=== PATIENT | male | born 1980 | race Caucasian/White ===

== ENCOUNTER → 2018-12-15 | Outpatient (CLI) | payer OTHER ==
--- NOTE | 2018-12-15 10:01 | US ---
EXAMINATION TYPE: US venous doppler duplex LE RT DATE OF EXAM: 12/15/2018 9:54 AM COMPARISON: NONE CLINICAL HISTORY: Right knee pain/S83.241A/M79.604/M25.561. Pt states right knee pain, denies prior D VT and not on blood thinners SIDE PERFORMED: Right TECHNIQUE: The lower extremity deep venous system is examined utilizing real time linear array sonog marizol with graded compression, doppler sonography and color-flow sonography. VESSELS IMAGED: External Iliac Vein (EIV) Common Femoral Vein Deep Femoral Vein Greater Saphenous Vein * Femoral Vein Popliteal Vein Small Saphenous Vein * Proximal Calf Veins (* superficial vessels) Right Leg: Negative for DVT Results called to Janessa at [facility] at time of exam IMPRESSION: 1. No diagnostic evidence of DVT as visualized.
== END | disposition home or self-care (01) ==
LOC: RADUSWWP 09:22
PROVIDERS: ATTEND Orthopaedic Surgery
DX: M79.604 Pain in right leg (principal); M17.0 Bilateral primary osteoarthritis of knee

== ENCOUNTER 2019-01-20 11:50 | Emergency (ER) | payer OTHER ==
[2019-01-20 11:55] VITALS: BP 115/76; PULSE 74; TEMP 98
[2019-01-20 12:33] VITALS: RESP 16
[2019-01-20] MEDS ORDERED: IBUPROFEN 600 MG TAB PO STA (12:49)
--- NOTE | 2019-01-20 13:16 | XR ---
Right hand HISTORY: Trauma and pain 3 views of the right hand There is a transverse mid diaphyseal right third digit metacarpal fracture without displacement. No d islocation. Alignment is maintained. IMPRESSION: Nondisplaced third metacarpal fracture.
--- NOTE | 2019-01-20 13:57 | ED ---
General Adult HPI - General Chief complaint: Extremity Injury, Upper Stated complaint: Hand Injury/Lac Time Seen by Provider: 01/20/19 12:01 Source: patient Mode of arrival: ambulatory Limitations: no limitations - History of Present Illness Initial comments: Patient is a 38-year-old male presenting to emergency Department with injury to right hand. Patient states that a cinderblock fell on his right hand with the edge. Patient states the pain is located along the third metacarpal and does not radiate anywhere. Patient denies any bleeding. Patient states the pain is exacerbated with extension of the third digit. Patient reports he has full range of motion but it is painful. Patient states that he has not taken anything to control her pain. She denies any numbness or tingling. - Related Data Home Medications Medication Instructions Recorded Confirmed Omeprazole 20 mg PO DAILY 01/20/19 01/20/19 Allergies Allergy/AdvReac Type Severity Reaction Status Date / Time codeine Allergy Itching Verified 01/20/19 12:23 Review of Systems ROS Statement: Those systems with pertinent positive or pertinent negative responses have been documented in the HPI. ROS Other: All systems not noted in ROS Statement are negative. Past Medical History Past Medical History: No Reported History History of Any Multi-Drug Resistant Organisms: None Reported Past Surgical History: Orthopedic Surgery Additional Past Surgical History / Comment(s): right knee surgery Past Psychological History: No Psychological Hx Reported Smoking Status: Never smoker Past Alcohol Use History: None Reported Past Drug Use History: None Reported General Exam Limitations: no limitations General appearance: alert, in no apparent distress Head exam: Present: atraumatic, normocephalic, normal inspection Eye exam: Present: normal appearance Neck exam: Present: normal inspection Respiratory exam: Present: normal lung sounds bilaterally Cardiovascular Exam: Present: regular rate, normal rhythm, normal heart sounds Right Shoulder Exam: Present: normal inspection, full ROM Upper Arm exam: Present: normal inspection, full ROM Elbow exam: Present: normal inspection, full ROM Forearm Wrist exam: Present: normal inspection, full ROM Hand Wrist exam: Present: tenderness (Third metacarpal), swelling (Third metacarpal region), abrasion, erythema. Absent: laceration, crepitus Vascular: Present: normal capillary refill, radial pulse, ulnar pulse Neurological exam: Present: alert, oriented X3 Psychiatric exam: Present: normal affect, normal mood Skin exam: Present: warm, normal color Course Vital Signs 01/20/19 01/20/19 11:53 12:32 Temperature 98.0 F Pulse Rate 74 Respiratory 18 16 Rate Blood Pressure 115/76 O2 Sat by Pulse 98 Oximetry Procedures - Orthopedic Splinting/Casting Injury #1 Upper Extremity Immobilizer: volar splint Medical Decision Making - Medical Decision Making Patient is a 38-year-old male with trauma to the right hand. X-ray of the right hand is suggestive of a nondisplaced fracture of the third metacarpal. Volar splint was placed on the right hand. Patient advised to ice the hand, keep elevated and alternate between Tylenol and ibuprofen for pain control. Patient advised to follow-up with orthopedics. Patient advised to return to emergency department is symptoms worsen. Case discussed with physician. Disposition Clinical Impression: Fracture of hand Disposition: HOME SELF-CARE Condition: Stable Instructions (If sedation given, give patient instructions): Hand Fracture (ED) Additional Instructions: Please alternate between Tylenol and ibuprofen for pain control. Please keep arm elevated and use ice packs to minimize inflammation. Please follow-up with orthopedics. Please return to emergency department if symptoms worsen. Is patient prescribed a controlled substance at d/c from ED?: No Referrals: [facility],Clinic [Primary Care Provider] - 1-2 days Joseph Mckeon MD [STAFF PHYSICIAN] - 1-2 days Time of Disposition: 13:30
== END 2019-01-20 14:05 | disposition home or self-care (01) ==
LOC: EC 11:50
DX: S62.302A Unspecified fracture of third metacarpal bone, right hand, initial encounter for closed fracture (principal); Z79.899 Other long term (current) drug therapy; Z88.5 Allergy status to narcotic agent; W20.8XXA Other cause of strike by thrown, projected or falling object, initial encounter
CPT/HCPCS: 29125; 99283

== ENCOUNTER 2020-01-22 15:21 | Observation (INO) | payer OTHER ==
[2020-01-22] MEDS ORDERED: ONDANSETRON 4 MG/2 ML VIAL IVP STA (15:33)
--- NOTE | 2020-01-22 15:40 | ED ---
Abdominal Pain HPI <Edward Calzada - Last Filed: 01/22/20 17:16> - General Source: patient Mode of arrival: ambulatory Limitations: no limitations <Marielena Dean - Last Filed: 01/22/20 17:24> - General Chief Complaint: Abdominal Pain Stated Complaint: abd pain,vomiting Time Seen by Provider: 01/22/20 15:33 - History of Present Illness Initial Comments: 39yo male presenting today for cc of RLQ pain x 14 hours. Patient states that he has had nausea, vomiting and RLQ pain since 1:30 AM. Patient states that he has had chills but no recorded fevers. Patient denies any diarrhea or constipation. Patient denies any bloody or melanotic stools. Patient states he has not had an appetite. Patient called his physician who was concerned he possibly had appendicitis and told to come to the emergency department for further evaluation. Patient states the pain does increase with ambulation. Patient kvng es chest pain or SOB. Denies additional complaints. Described pain as aching, sharp at times without radiation. Upon arrival patient VS WNL. (Marielena Dean) - Related Data Home Medications Medication Instructions Recorded Confirmed Omeprazole 20 mg PO DAILY 01/20/19 01/22/20 Varenicline [Chantix Starter Pack] See Taper PO DAILY 01/22/20 01/22/20 Allergies Allergy/AdvReac Type Severity Reaction Status Date / Time codeine Allergy Itching Verified 01/22/20 16:49 Review of Systems ROS Other: All systems not noted in ROS Statement are negative. <Edward Calzada - Last Filed: 01/22/20 17:16> ROS Other: All systems not noted in ROS Statement are negative. <Marielena Dean - Last Filed: 01/22/20 17:24> ROS Statement: Those systems with pertinent positive or pertinent negative responses have been documented in the HPI. Past Medical History Past Medical History: GERD/Reflux History of Any Multi-Drug Resistant Organisms: None Reported Past Surgical History: Orthopedic Surgery Additional Past Surgical History / Comment(s): right knee surgery Past Psychological History: No Psychological Hx Reported Smoking Status: Current every day smoker Past Alcohol Use History: None Reported Past Drug Use History: None Reported <Marielena Dean - Last Filed: 01/22/20 17:24> General Exam Limitations: no limitations <Marielena Dean - Last Filed: 01/22/20 17:24> - General Exam Comments Initial Comments: General: The patient is awake and alert, in no distress, appears nontoxic. Eye: Pupils are equal, round and reactive to light, extra-ocular movements are intact. No nystagmus. There is normal conjunctiva bilaterally. No signs of icterus. Cardiovascular: There is a regular rate and rhythm. No murmur, rub or gallop is appreciated. Respiratory: Lungs are clear to auscultation, respirations are non-labored, breath sounds are equal. No wheezes, stridor, rales, or rhonchi. Gastrointestinal: Soft, non-distended, RLQ tenderness to palpation of the abdomen, some guarding noted. Remaining abdomen is nontender and is without mass es or organomegaly noted. There is no rebound or guarding present. No CVA tenderness. Bowel sounds are unremarkable. Musculoskeletal: Normal ROM, no tenderness. Strength 5/5. Sensation intact. Radial pulses equal bilaterally 2+. Neurological: A&O x 3. CN II-XII intact grossly, There are no obvious motor or sensory deficits. Coordination appears grossly intact. Speech is normal. Skin: Skin is warm and dry and no rashes or lesions are noted. Psychiatric: Cooperative, appropriate mood & affect, normal judgment. (Marielena Dean) Course Vital Signs 01/22/20 15:23 Temperature 98.1 F Pulse Rate 84 Respiratory 18 Rate Blood Pressure 126/77 O2 Sat by Pulse 97 Oximetry Medical Decision Making - Lab Data Result diagrams: 01/22/20 15:41 01/22/20 15:41 <Edward Calzada - Last Filed: 01/22/20 17:16> - Lab Data Result diagrams: 01/22/20 15:41 01/22/20 15:41 <Marielena Dean - Last Filed: 01/22/20 17:24> - Medical Decision Making Patient was reexamined and reevaluated by myself, Dr. Calzada. Onset of symptoms was just over 14 or 15 hours ago. Symptoms have progressively worsened. Loss of appetite. Patient has moderate tenderness with guarding right lower quadrant. Computed tomography scan shows dilated appendix. White blood cell count slightly elevated. Case discussed in detail Dr. Vila who will call the OR and probably take patient today. It is updated. (Edward Calzada) 39-year-old male presenting today for chief complaint of right lower quadrant pain. CT reveals appendix dilation is significant pain on examination with leukocytosis I do suspect that this is a developing acute appendicitis. Patient placed on Zosyn. Dr. Jason on-call surgeon accepted patient and is agreeable to care plan. (Marielena Dean) - Lab Data Lab Results 01/22/20 01/22/20 01/22/20 Range/Units 15:41 15:41 15:41 WBC 11.1 H (3.8-10.6) k/uL RBC 5.42 (4.30-5.90) m/uL Hgb 16.7 (13.0-17.5) gm/dL Hct 51.2 (39.0-53.0) % MCV 94.6 (80.0-100.0) fL MCH 30.7 (25.0-35.0) pg MCHC 32.5 (31.0-37.0) g/dL RDW 12.7 (11.5-15.5) % Plt Count 168 (150-450) k/uL Neutrophils % 68 % Lymphocytes % 20 % Monocytes % 5 % Eosinophils % 6 % Basophils % 0 % Neutrophils # 7.5 (1.3-7.7) k/uL Lymphocytes # 2.2 (1.0-4.8) k/uL Monocytes # 0.5 (0-1.0) k/uL Eosinophils # 0.7 (0-0.7) k/uL Basophils # 0.0 (0-0.2) k/uL Sodium 137 (137-145) mmol/L Potassium 4.3 (3.5-5.1) mmol/L Chloride 107 (98-107) mmol/L Carbon Dioxide 23 (22-30) mmol/L Anion Gap 7 mmol/L BUN 14 (9-20) mg/dL Creatinine 0.82 (0.66-1.25) mg/dL Est GFR (CKD-EPI)AfAm >90 (>60 ml/min/1.73 sqM) Est GFR (CKD-EPI)NonAf >90 (>60 ml/min/1.73 sqM) Glucose 106 H (74-99) mg/dL Plasma Lactic Acid Efrain 1.2 (0.7-2.0) mmol/L Calcium 9.3 (8.4-10.2) mg/dL Total Bilirubin 1.0 (0.2-1.3) mg/dL AST 28 (17-59) U/L ALT 30 (4-49) U/L Alkaline Phosphatase 91 (38-126) U/L Total Protein 7.1 (6.3-8.2) g/dL Albumin 4.3 (3.5-5.0) g/dL Amylase 62 (30-110) U/L Lipase 51 (23-300) U/L Disposition <Edward Calzada - Last Filed: 01/22/20 17:16> Is patient prescribed a controlled substance at d/c from ED?: No Time of Disposition: 16:47 Decision to Admit Reason: Admit from EC Decision Date: 01/22/20 Decision Time: 16:47 <Marielena Dean - Last Filed: 01/22/20 17:24> Clinical Impression: RLQ abdominal pain, Appendicitis Disposition: ADMITTED IP TO THIS HOSP Condition: Stable
[2020-01-22 15:56] LABS: Basophils % (A) 0 %; Eosinophils # (A) 0.7 k/uL (0-0.7); Eosinophils % (A) 6 %; HCT 51.2 % (39.0-53.0); HGB 16.7 gm/dL (13.0-17.5); Lymphocytes # (A) 2.2 k/uL (1.0-4.8); Lymphocytes % (A) 20 %; MCH 30.7 pg (25.0-35.0); MCHC 32.5 g/dL (31.0-37.0); MCV 94.6 fL (80.0-100.0); Mean Platelet Volume 8.9; Monocytes # (A) 0.5 k/uL (0-1.0); Monocytes % (A) 5 %; Neutrophils # (A) 7.5 k/uL (1.3-7.7); Neutrophils % (A) 68 %; Platelet Count 168 k/uL (150-450); RBC 5.42 m/uL (4.30-5.90); RDW 12.7 % (11.5-15.5); WBC 11.1 k/uL (3.8-10.6)
[2020-01-22 16:04] LABS: ALT 30 U/L (4-49); AST 28 U/L (17-59); African American GFR (CKD) >90 (>60 ml/min/1.73 sqM); Albumin 4.3 g/dL (3.5-5.0); Alkaline Phosphatase 91 U/L (38-126); Amylase 62 U/L (30-110); Anion Gap 7 mmol/L; Blood Urea Nitrogen 14 mg/dL (9-20); Calcium 9.3 mg/dL (8.4-10.2); Carbon Dioxide 23 mmol/L (22-30); Chloride 107 mmol/L (98-107); Glucose 106 mg/dL (74-99); Non-African American GFR(CKD) >90 (>60 ml/min/1.73 sqM); Potassium 4.3 mmol/L (3.5-5.1); Sodium 137 mmol/L (137-145); Total Protein 7.1 g/dL (6.3-8.2)
--- NOTE | 2020-01-22 16:41 | CT ---
EXAMINATION TYPE: CT abdomen pelvis w con DATE OF EXAM: 01/22/2020 COMPARISON: None. HISTORY: RLQ pain CT DLP: 1118.4 mGycm, Automated Exposure Control for Dose Reduction was Utilized. CONTRAST: CT scan of the abdomen and pelvis is performed without oral but with IV Contrast, patient injected wi th 100 mL of Isovue 300. FINDINGS: LUNG BASES: Posterior bibasilar linear scarring and/or atelectasis. LIVER/GB: Liver is diffusely low dense consistent with fatty infiltration. PANCREAS: No significant abnormality is seen. SPLEEN: No significant abnormality is seen. ADRENALS: No significant abnormality is seen. KIDNEYS: Subcentimeter simple appearing thin-walled cysts lower pole level both kidneys. Symmetric co rtical medullary uptake and excretion without hydronephrosis seen bilaterally. BOWEL: Suboptimal evaluation without enteric contrast. No suspicious small or large bowel dilatation is present. Appendix mildly thickened up to 8 mm in the right pelvis coronal image 45 for reference w ithout surrounding fat stranding. Appendix seen in its entirety coronal images 34 through 46 for ref erence. PROSTATE/SEMINAL VESICLES: No gross abnormality seen. LYMPH NODES: No greater than 1cm abdominal or pelvic lymph nodes are appreciated. Just below drainin g left renal vein there are prominent but subcentimeter retroperitoneal lymph nodes axial image 36. OSSEOUS STRUCTURES: Moderate disc space narrowing lumbosacral junction with posterior disc herniation sagittal image 66 for reference. OTHER: No significant additional abnormality is seen. IMPRESSION: Appendix is mildly dilated in portions without surrounding inflammatory changes or fat st randing to suggest acute appendicitis. Due to mild dilatation cannot be entirely excluded. Acute find ing of patient's right lower quadrant pain otherwise not identified.
[2020-01-22] MEDS ORDERED: PIPERACILLIN-TAZOBACTAM 3.375 GM in SODIUM CHLORIDE 0.9% 100 ML IVPB STA (16:44)
[2020-01-22] MEDS ORDERED: MORPHINE SULFATE 4 MG/ML SYRINGE IV PRN (16:45)
[2020-01-22] MEDS ORDERED: NALOXONE 0.4 MG/ML 1 ML VIAL IV PRN ×2 (16:45→19:28)
[2020-01-22] MEDS: SODIUM CHLORIDE 0.9% 1,000 ML IV SCH (17:03)
[2020-01-22] MEDS ORDERED: fentaNYL (PF) 50 MCG/ML 2 ML AMP ONE (18:46)
[2020-01-22] MEDS ORDERED: IV FLUID CONTINUATION 1,000 ML IV ONE (18:46)
[2020-01-22] MEDS ORDERED: GLYCOPYRROLATE 0.2 MG/ML 2 ML VIAL ONE (18:46)
[2020-01-22] MEDS ORDERED: ROCURONIUM BROMIDE 10 MG/ML 5 ML VIAL IV ONE (18:46)
[2020-01-22] MEDS ORDERED: SUCCINYLCHOLINE CHLORIDE 100 MG/5 ML SYR IV ONE (18:46)
[2020-01-22] MEDS ORDERED: LIDOCAINE 1% INJ 10MG/ML (20 ML MDV) ONE (18:46)
[2020-01-22] MEDS ORDERED: NEOSTIGMINE 1 MG/ML 10 ML VIAL ONE (18:46)
[2020-01-22] MEDS ORDERED: MIDAZOLAM 2 MG/2 ML VIAL ONE (18:46)
[2020-01-22] MEDS ORDERED: PROPOFOL 10 MG/ML 20 ML VIAL IV ONE (18:46)
--- NOTE | 2020-01-22 18:52 | P.GSHP ---
History of Present Illness H&P Date: 01/22/20 Chief Complaint: Right lower quadrant pain This a 39-year-old male who presents today with complaints of right lower quadrant pain for prostate 14 hours. Patient had her medical pain which radiated to his right lower quadrant. He describes nausea and vomiting earlier today with the pain. Patient's CAT scan shows a dilated appendix suspicious for acute appendicitis. Past Medical History Past Medical History: GERD/Reflux History of Any Multi-Drug Resistant Organisms: None Reported Past Surgical History: Orthopedic Surgery Additional Past Surgical History / Comment(s): right knee surgery Past Psychological History: No Psychological Hx Reported Smoking Status: Current every day smoker Past Alcohol Use History: None Reported Past Drug Use History: None Reported Medications and Allergies Home Medications Medication Instructions Recorded Confirmed Type Omeprazole 20 mg PO DAILY 01/20/19 01/22/20 History Varenicline [Chantix Starter Pack] See Taper PO DAILY 01/22/20 01/22/20 History Allergies Allergy/AdvReac Type Severity Reaction Status Date / Time codeine Allergy Itching Verified 01/22/20 16:49 Surgical - Exam Vital Signs Temp Pulse Resp BP Pulse Ox 98.1 F 84 18 126/77 97 01/22/20 15:23 01/22/20 15:23 01/22/20 15:23 01/22/20 15:23 01/22/20 15:23 - General well developed, well nourished, no distress - Eyes PERRL - ENT normal pinna - Neck no masses - Respiratory normal expansion - Cardiovascular Rhythm: regular - Abdomen Marked right lower quadrant tenderness Abdomen: soft Results - Labs 01/22/20 15:41 01/22/20 15:41 Abnormal Lab Results - Last 24 Hours (Table) 01/22/20 01/22/20 Range/Units 15:41 15:41 WBC 11.1 H (3.8-10.6) k/uL Glucose 106 H (74-99) mg/dL Diabetes panel 01/22/20 Range/Units 15:41 Sodium 137 (137-145) mmol/L Potassium 4.3 (3.5-5.1) mmol/L Chloride 107 (98-107) mmol/L Carbon Dioxide 23 (22-30) mmol/L BUN 14 (9-20) mg/dL Creatinine 0.82 (0.66-1.25) mg/dL Glucose 106 H (74-99) mg/dL Calcium 9.3 (8.4-10.2) mg/dL AST 28 (17-59) U/L ALT 30 (4-49) U/L Alkaline Phosphatase 91 (38-126) U/L Total Protein 7.1 (6.3-8.2) g/dL Albumin 4.3 (3.5-5.0) g/dL Calcium panel 01/22/20 Range/Units 15:41 Calcium 9.3 (8.4-10.2) mg/dL Albumin 4.3 (3.5-5.0) g/dL Pituitary panel 01/22/20 Range/Units 15:41 Sodium 137 (137-145) mmol/L Potassium 4.3 (3.5-5.1) mmol/L Chloride 107 (98-107) mmol/L Carbon Dioxide 23 (22-30) mmol/L BUN 14 (9-20) mg/dL Creatinine 0.82 (0.66-1.25) mg/dL Glucose 106 H (74-99) mg/dL Calcium 9.3 (8.4-10.2) mg/dL Adrenal panel 01/22/20 Range/Units 15:41 Sodium 137 (137-145) mmol/L Potassium 4.3 (3.5-5.1) mmol/L Chloride 107 (98-107) mmol/L Carbon Dioxide 23 (22-30) mmol/L BUN 14 (9-20) mg/dL Creatinine 0.82 (0.66-1.25) mg/dL Glucose 106 H (74-99) mg/dL Calcium 9.3 (8.4-10.2) mg/dL Total Bilirubin 1.0 (0.2-1.3) mg/dL AST 28 (17-59) U/L ALT 30 (4-49) U/L Alkaline Phosphatase 91 (38-126) U/L Total Protein 7.1 (6.3-8.2) g/dL Albumin 4.3 (3.5-5.0) g/dL Assessment and Plan Assessment: Acute appendicitis. Patient undergo laparoscopic appendectomy
[2020-01-22] MEDS ORDERED: BUPIVACAIN-EPI 0.25%-1:200,000 30 ML VIAL SQ ONE (19:03)
[2020-01-22] MEDS ORDERED: ONDANSETRON 4 MG/2 ML VIAL IVP PRN (19:28)
[2020-01-22] MEDS ORDERED: HYDROmorphone 0.5 MG/0.5 ML SYRINGE IVP PRN (19:28)
[2020-01-22] MEDS ORDERED: LACTATED RINGERS 1,000 ML IV ONE (19:28)
--- NOTE | 2020-01-22 19:28 | P.OP ---
Date of Procedure: 01/22/20 Preoperative Diagnosis: Acute appendicitis Postoperative Diagnosis: Acute appendicitis Procedure(s) Performed: Laparoscopic appendectomy Anesthesia: ANKITA Surgeon: Glen Vila Estimated Blood Loss (ml): 5 Pathology: other (Appendix) Condition: stable Disposition: PACU Description of Procedure: HThe patient's placed on the operating table in the supine position. The patient received general anesthesia. The abdomen was prepped and draped in the usual sterile fashion. The skin was anesthetized 1% local Xylocaine at the trocar sites. Using an 11 blade the skin was incised at the umbilicus. The umbilicus was grasped with a Ilsa clamp and then a Veress needle was placed into the peritoneal cavity. Position of the Veress needle was confirmed with positive drop test. After adequate insufflation a 5 mm trocar was placed into the peritoneal cavity. The abdomen was further insufflated. And then the laparoscope was placed in the peritoneal cavity. Next a 5 mm trocar was placed in the midline suprapubic position. And then a 10 mm trocar was placed in the midline epigastric position. The patient was rotated with the right side up and in Trendelenburg. The appendix was visualized. The appendix appeared to be inflamed. The appendix was grasped and then using the Harmonic scissors the mesoappendix was divided. A PDS Endoloop was then placed around the base of the appendix. And then the appendix was divided using Harmonic scissors. The appendix was placed into an Endo Catch and brought out through the 10 mm trocar site. The abdomen was irrigated. There is no bleeding seen. The trochars withdrawn. The skin was closed interrupted 3-0 Monocryl suture. Dermabond dressing was applied. Patient was sent to recovery room in stable condition.
[2020-01-22] MEDS ORDERED: HYDROmorphone 1 MG/ML 1 ML SYRINGE IVP ONE ×2 (19:30→19:35)
[2020-01-22] MEDS ORDERED: diphenhydrAMINE 50 MG/ML 1 ML VIAL IVP ONE (19:32)
[2020-01-22] MEDS ORDERED: KETOROLAC 30 MG/ML 1 ML VIAL IVP ONE (19:40)
[2020-01-22] MEDS ORDERED: HYDROmorphone 0.5 MG/0.5 ML SYRINGE IVP ONE (19:53)
[2020-01-22] MEDS: KETOROLAC 30 MG/ML 1 ML VIAL IVP SCH (21:11)
[2020-01-23] MEDS: KETOROLAC 30 MG/ML 1 ML VIAL IVP SCH ×2 (01:47→08:04)
[2020-01-23 05:29] LABS: Appearance,Urine Clear (Clear); Bilirubin,Urine Negative (Negative); Blood,Urine Negative (Negative); Color,Urine Yellow; Glucose,Urine (UA) Negative (Negative); Ketones,Urine Negative (Negative); Leukocyte Esterase,Urine Negative (Negative); Nitrite,Urine Negative (Negative); Protein,Urine Negative (Negative); Specific Gravity,Urine 1.031 (1.001-1.035); Urobilinogen,Urine <2.0 mg/dL (<2.0)
[2020-01-23] MEDS: SODIUM CHLORIDE 0.9% 1,000 ML IV SCH (06:08)
[2020-01-23] MEDS ORDERED: HYDROcodone/APAP 5-325MG 1 EACH TAB PO PRN (08:27)
[2020-01-23] MEDS ORDERED: ENOXAPARIN 40 MG/0.4 ML SYRINGE SQ SCH (09:00)
--- NOTE | 2020-01-23 11:16 | P.DS ---
Providers Date of admission: 01/22/20 16:56 Expected date of discharge: 01/23/20 Attending physician: Glen Vila Primary care physician: [facility] Hospital Course: 39-year-old male who presented to emergency room with a chief complaint of abdominal pain. Patient was found to have acute appendicitis. He underwent laparoscopic appendectomy with Dr. Vila. Patient is doing well postoperatively without any immediate complications. Pain is controlled on oral medications. He is tolerating diet without nausea or vomiting. Vital signs are stable. He is stable for discharge home today. Please see EMR for further hospital course details. Discharge diagnosis 1. Abdominal pain 2. Acute appendicitis Nurse practitioner note has been reviewed by physician. Signing provider agrees with the documented findings, assessment, and plan of care. Patient Condition at Discharge: Stable Plan - Discharge Summary Discharge Rx Participant: No New Discharge Prescriptions: No Action Omeprazole 20 mg PO DAILY Varenicline [Chantix Starter Pack] See Taper PO DAILY Discharge Medication List Omeprazole 20 mg PO DAILY 01/20/19 [History] Varenicline [Chantix Starter Pack] See Taper PO DAILY 01/22/20 [History] Follow up Appointment(s)/Referral(s): Callum Sykes DO [Doctor of Osteopathic Medicine] - 1-2 days
[2020-01-23 11:45] VITALS: BP 110/69; PULSE 74; RESP 18; TEMP 97.9
== END 2020-01-23 13:10 | disposition home or self-care (01) ==
LOC: EC 15:21 → 5NMEDONC 16:56
PROVIDERS: ADMIT Surgery; ATTEND Surgery
DX: K35.30 Acute appendicitis with localized peritonitis, without perforation or gangrene (principal); K21.9 Gastro-esophageal reflux disease without esophagitis; F17.200 Nicotine dependence, unspecified, uncomplicated; Z79.899 Other long term (current) drug therapy; Z88.5 Allergy status to narcotic agent
CPT/HCPCS: 44970; 96374; 96375; 99285; 36415; 88304; 80053; 82150; 83605; 83690; 85025; 81003; 87040; 74177; G0378 ×2; J2543; J2250; J2270; J1200; J2710; J2405; J2001; J1650; J3010; J1885 ×2; J1170 ×2; J0330; J2704; Q9967

== ENCOUNTER → 2021-10-28 | Outpatient (CLI) | payer OTHER ==
[2021-10-29 01:49] LABS: Basophils # (A) 0.06 X 10*3/uL (0.00-0.10); Basophils % (A) 0.7 %; HCT 51.9 % (39.6-50.0); HGB 16.8 g/dL (13.0-17.0); Immature Grans, Automated 0.7 %; Lymphocytes # (A) 2.84 X 10*3/uL (0.90-5.00); Lymphocytes % (A) 32.5 %; MCHC 32.4 g/dL (32.0-37.0); MCV 95.8 fL (80.0-97.0); Mean Platelet Volume 11.8 fL (9.5-12.2); Monocytes # (A) 0.58 X 10*3/uL (0.20-1.00); Monocytes % (A) 6.6 %; NRBC Per 100 WBC 0 /100 WBCS (0.0-0.0); Neutrophils # (A) 4.49 X 10*3/uL (1.80-7.70); Neutrophils % (A) 51.5 %; Platelet Count 184 X 10*3/uL (140-440); RBC 5.42 X 10*6/uL (4.40-5.60); WBC 8.73 X 10*3/uL (4.50-10.00)
== END | disposition home or self-care (01) ==
LOC: LABPAT 14:30
PROVIDERS: ATTEND Surgery
DX: Z01.812 Encounter for preprocedural laboratory examination (principal); K43.0 Incisional hernia with obstruction, without gangrene
CPT/HCPCS: 36415; 85025; 86850; 86900; 86901

== ENCOUNTER 2021-11-05 06:03 | Day surgery (SDC) | payer OTHER ==
[2021-11-04 08:48] VITALS: BMI 27.6
[~2021-11-05 06:03] MED LIST: ACETAMINOPHEN TAB 500 MG TAB PO PRN; HEPARIN SODIUM,PORCINE/PF 5,000 UNIT/0.5 ML SYRINGE SQ PRN
[2021-11-05] MEDS ORDERED: ONDANSETRON 4 MG/2 ML VIAL IVP ONE (06:20)
[2021-11-05] MEDS ORDERED: DEXAMETHASONE SOD PHOSPHATE 4 MG/ML 1 ML VIAL IV ONE (06:20)
[2021-11-05] MEDS: LACTATED RINGERS 1,000 ML IV SCH ×2 (07:00→09:40)
[2021-11-05 07:03] LABS: Glucose,Whole Blood 96 mg/dL (75-99)
[2021-11-05 07:15] VITALS: RESP 16
[2021-11-05] MEDS ORDERED: MIDAZOLAM 2 MG/2 ML VIAL IVP ONE (07:28)
[2021-11-05] MEDS ORDERED: fentaNYL (PF) 50 MCG/ML 2 ML AMP IVP ONE ×2 (07:28→07:32)
[2021-11-05] MEDS ORDERED: PROPOFOL 10 MG/ML 20 ML VIAL IV ONE (07:56)
[2021-11-05] MEDS ORDERED: HYDROmorphone (PF) 1 MG/ML ONE (07:56)
[2021-11-05] MEDS ORDERED: fentaNYL (PF) 50 MCG/ML 2 ML AMP ONE (07:56)
[2021-11-05] MEDS ORDERED: LIDOCAINE 1% INJ 10MG/ML (20 ML MDV) ONE (07:56)
[2021-11-05] MEDS ORDERED: ROPIVACAINE 5 MG/ML 30 ML VIAL ONE (07:56)
[2021-11-05] MEDS ORDERED: ROCURONIUM 10 MG/ML (5 ML VIAL) IV ONE (07:56)
[2021-11-05] MEDS ORDERED: SODIUM CHLORIDE 0.9% (PF) 10 ML VIAL ONE (07:56)
[2021-11-05] MEDS ORDERED: NEOSTIGMINE 1 MG/ML 10 ML VIAL ONE (07:56)
[2021-11-05] MEDS ORDERED: MIDAZOLAM 2 MG/2 ML VIAL ONE (07:56)
[2021-11-05] MEDS ORDERED: GLYCOPYRROLATE 0.2 MG/ML 2 ML VIAL ONE (07:56)
[2021-11-05] MEDS ORDERED: SUCCINYLCHOLINE CHLORIDE 100 MG/5 ML SYR IV ONE (07:56)
[2021-11-05] MEDS ORDERED: BUPIVACAIN-EPI 0.25%-1:200,000 30 ML VIAL SQ ONE ×2 (08:00→08:30)
[2021-11-05 09:18] VITALS: TEMP 97
--- NOTE | 2021-11-05 09:19 | P.GSHP ---
History of Present Illness H&P Date: 11/05/21 Chief Complaint: Incisional hernia Is a 41-year-old male who's developed an incisional hernia located at his epigastric port site. Patient had previous laparoscopic appendectomy several years ago. Past Medical History Past Medical History: GERD/Reflux Additional Past Medical History / Comment(s): INCISIONAL HERNIA History of Any Multi-Drug Resistant Organisms: None Reported Past Surgical History: Appendectomy, Orthopedic Surgery Additional Past Surgical History / Comment(s): right knee surgery. RT LEG COMPOUND FX SX AGE 8 Past Anesthesia/Blood Transfusion Reactions: No Reported Reaction Smoking Status: Current every day smoker - Past Family History Mother Family Medical History: No Reported History Medications and Allergies Home Medications Medication Instructions Recorded Confirmed Type Omeprazole 20 mg PO DAILY 01/20/19 11/05/21 History Allergies Allergy/AdvReac Type Severity Reaction Status Date / Time codeine Allergy Itching Verified 11/05/21 06:55 Surgical - Exam Vital Signs Temp Pulse Resp BP Pulse Ox 97.4 F L 76 16 130/72 98 11/05/21 07:14 11/05/21 07:14 11/05/21 07:14 11/05/21 07:14 11/05/21 07:14 - General well developed, well nourished, no distress - Eyes PERRL - ENT normal pinna - Neck no masses - Respiratory normal expansion - Cardiovascular Rhythm: regular - Abdomen Incisional hernia Abdomen: soft, non tender Assessment and Plan Assessment: Incisional hernia. We'll perform laparoscopic robotic system repair.
--- NOTE | 2021-11-05 09:22 | P.OP ---
Date of Procedure: 11/05/21 Preoperative Diagnosis: Incisional hernia Postoperative Diagnosis: Incisional hernia Procedure(s) Performed: laparoscopic robotic repair of incisional hernia Partial omentectomy Transversus abdominis plane block Anesthesia: ANKITA Surgeon: Glen Vila Estimated Blood Loss (ml): 5 Pathology: other (Omentum) Condition: stable Disposition: PACU Description of Procedure: The patient was placed on the operating table in the supine position. He received general anesthesia. His abdomen was prepped and draped usual fashion. Using a 5 mm optical trocar under direct visualization the peritoneal cavity was entered in the left infraumbilical position.. The abdomen was then insufflated. The laparoscope was placed back into the perineal cavity. Next a 8 mm robotic trocar was placed in the left lower quadrant and a 8 mm robotic trochars placed in the right lower lateral position.. The original 5 mm trocar was exchanged for a 12 mm robotic trocar. The patient's placed in the left side up position. A tap block was performed in 4 quadrants using 1% local Xylocaine. And the patient was docked to the robot. The incisional hernia was visualized. Using hook cautery the peritoneum over the incisional hernia was excised. The incarcerated omentum was dissected free and sent to pathology. The fascial opening was repaired using 0V LOC suture. Next a piece of 11 cm round ventral light ST mesh was placed into the. Cavity and secured with 2 OV lock suture. The patient was undocked the robot. The needles were retrieved. The fascia of the 12 mm trocar site was closed with 0 Ethibond suture. Skin was closed interrupted 3-0 Monocryl suture. Dermabond dressings was applied. Patient tolerated procedure well and was sent to recovery room stable condition.
[2021-11-05] MEDS: HYDROmorphone 0.5 MG/0.5 ML SYRINGE IVP PRN ×2 (09:32→09:49)
[2021-11-05] MEDS ORDERED: KETOROLAC 15 MG/ML 1 ML VIAL IVP ONE (09:34)
--- NOTE | 2021-11-05 11:07 | P.ANPRN ---
Procedure Note - Anesthesia - Nerve Block Performed Bilateral Rectus Abdominis Single Time Out Performed: Yes (727) Date of Procedure: 11/05/21 Procedure Start Time: 07:28 Procedure Stop Time: 07:35 Location of Patient: PreOp Indication: Acute Post-Operative Pain, Requested by Surgeon Specifically requested for management of pain by DrMichael: Glen Vila Sedation Type: Sedate with meaningful contact maintained Preparation: Sterile Prep Position: Supine Catheter: None Needle Types: Pajunk Needle Gauge: 21 Ultrasound used to visualize needle placement: Yes Ultrasound used to observe medication spread: Yes Injectate: 0.5% Ropivacaine (see comment for volume) (15cc + 5cc nacl pf each side) Blood Aspirated: No Pain Paresthesia on Injection Noted: No Resistance on Injection: Normal Image Stored and Saved: Yes Events: Uneventful and Well Tolerated
[2021-11-05 11:14] VITALS: BP 132/76; PULSE 74
== END 2021-11-05 11:36 | disposition home or self-care (01) ==
LOC: OR 06:03
PROVIDERS: ATTEND Surgery
DX: K43.0 Incisional hernia with obstruction, without gangrene (principal); K21.9 Gastro-esophageal reflux disease without esophagitis; Z90.49 Acquired absence of other specified parts of digestive tract; Z98.890 Other specified postprocedural states; Z87.81 Personal history of (healed) traumatic fracture; F17.290 Nicotine dependence, other tobacco product, uncomplicated; Z79.899 Other long term (current) drug therapy; Z88.5 Allergy status to narcotic agent
CPT/HCPCS: 49655; 64488; 86900; 86901; 86850; 88302; C1781; J2250; J1100; J2710; J0690; J2405; J2001; J3010; J1170 ×2; J2795; J1885; J0330; J2704; J1644; 64999